=== PATIENT | male | born 1955 | race Caucasian/White ===

== ENCOUNTER → 2020-07-06 | Outpatient (CLI) | payer OTHER | LOC: LAB SHORT 08:36 → PLD 08:36 | DX: C43.59 Malignant melanoma of other part of trunk (principal) | CPT/HCPCS: 88305 ==

== ENCOUNTER → 2020-07-29 | Outpatient (CLI) | payer OTHER | END | disposition home or self-care (01) | LOC: LAB 15:09 → LAB SHORT 15:09 | DX: L82.1 Other seborrheic keratosis (principal) | CPT/HCPCS: 88305 ==

== ENCOUNTER → 2022-10-17 | Outpatient (CLI) | payer OTHER | END | disposition home or self-care (01) | LOC: LAB SHORT 05:00 → LAB 05:00 | PROVIDERS: Family Medicine | DX: R19.7 Diarrhea, unspecified (principal) | CPT/HCPCS: 87015; 87045; 87046; 87205; 87899 ==

== ENCOUNTER 2022-12-10 08:04 | Emergency (ER) | payer OTHER, MEDICARE ==
[~2022-12-10] VITALS: Ht 177.8 cm; Wt 61.2 kg
[2022-12-10] MEDS ORDERED: Fluoxetine HCl20 M1 PO (08:28)
[2022-12-10] MEDS ORDERED: ALBU90OI INH (08:29)
[2022-12-10 08:49] LABS: BASOPHILS ABSOLUTE AUTO 0.04 K/mm3 (0.00-0.23); BASOPHILS PERCENT AUTO 0 % (0-2); EOSINOPHILS ABSOLUTE AUTO 0.31 K/mm3 (0.00-0.68); EOSINOPHILS PERCENT AUTO 2 % (0-6); Hemoglobin 14.1 g/dL (13.5-17.5); IMMATURE GRAN ABSOLUTE AUTO 0.08 K/mm3 (0.00-0.10); IMMATURE GRAN PERCENT AUTO 1 % (0-1); LYMPHOCYTES ABSOLUTE AUTO 1.52 K/mm3 (0.84-5.20); LYMPHOCYTES PERCENT AUTO 11 % (21-46); MONOCYTES ABSOLUTE AUTO 1.04 K/mm3 (0.16-1.47); MONOCYTES PERCENT AUTO 7 % (4-13); Mean Corpuscular HGB 33.2 pg (26.0-34.0); Mean Corpuscular HGB Conc 34.4 g/dL (31.5-36.5); Mean Corpuscular Volume 97 fL (80-100); NEUTROPHILS ABSOLUTE AUTO 11.37 K/mm3 (1.96-9.15); NEUTROPHILS PERCENT AUTO 79 % (41-73); Platelet Count 393 K/mm3 (150-400); RDW Coefficient Variation 13.9 % (11.7-14.2); Red Blood Cell Count 4.25 M/mm3 (4.30-5.90); White Blood Cell Count 14.36 K/mm3 (4.00-11.30)
[2022-12-10 09:06] LABS: Albumin, Blood 3.6 g/dL (3.4-5.0); Albumin/Globulin Ratio 0.9 (0.8-1.8); Bilirubin, Total 0.8 mg/dL (0.1-1.0); Bun/Creatinine Ratio 16.3 (12.0-20.0); Calcium, Blood 9.1 mg/dL (8.5-10.1); Creatinine, Blood 1.04 mg/dL (0.60-1.20); Globulin, Blood 3.9 g/dL (2.2-4.0); Potassium, Blood 4.1 mmol/L (3.5-5.5); Total Protein, Blood 7.5 g/dL (6.4-8.2)
[2022-12-10 09:33] LABS: Source, Urine Clean Catch
[2022-12-10 09:40] LABS: Appearance, Urine Clear (Clear); Bilirubin, Urine Neg (Neg); Blood, Urine 1+ (Neg); Color, Urine Yellow (P-Yellow); Glucose Qualitative, Urine Neg (Neg); Ketones, Urine Neg (Neg); Leukocyte Esterase, Urine Neg (Neg); Nitrite, Urine Neg (Neg); Protein, Urine 1+ (Neg); Urobilinogen, Urine 1+ (Normal)
[2022-12-10 09:53] LABS: Hyaline Casts 0-2 /lpf (0-2); Mucus Heavy (0-Heavy)
[2022-12-10 09:54] LABS: Spermatozoa Rare /hpf
[2022-12-10 09:58] LABS: Bacteria Mod /hpf
[2022-12-10 09:59] LABS: Red Blood Cells, Urine 0-2 /hpf (0-2); Squamous Epithelial Cells Rare /hpf (Few); White Blood Cells, Urine 0-2 /hpf (0-5)
[2022-12-10 10:01] LABS: Transitional Epithelial Cells Rare /hpf (0-Rare)
[2022-12-10 10:30] VITALS: BP 148/76
[2022-12-10] MEDS ORDERED: HYDR1TAB94 PO (11:45)
[2022-12-10] MEDS ORDERED: AMOCLA875 PO (11:45)
== END 2022-12-10 12:11 | disposition home or self-care (01) ==
LOC: ER 08:04
PROVIDERS: Emergency Medicine
DX: K57.32 Diverticulitis of large intestine without perforation or abscess without bleeding (principal); Z79.899 Other long term (current) drug therapy
CPT/HCPCS: 74177; 76857; 80053; 81001; 83690; 85025; 87086; 99284-25; Q9967

== ENCOUNTER → 2023-04-12 | Outpatient (CLI) | payer OTHER ==
[~2023-04-12] MED LIST: ALBU90OI INH; AMOCLA875 PO; Fluoxetine HCl20 M1 PO; HYDR1TAB94 PO
== END ==
LOC: LAB SHORT 12:28 → LAB 12:28
DX: D22.39 Melanocytic nevi of other parts of face (principal)
CPT/HCPCS: 88305

== ENCOUNTER 2023-05-09 11:43 | Day surgery (SDC) | payer OTHER ==
[~2023-05-09] VITALS: Ht 177.8 cm; Wt 65.0 kg
[~2023-05-09 11:43] MED LIST changes: +FLUO10 PO; -Fluoxetine HCl20 M1 PO
[2023-05-09] MEDS ORDERED: MIRT15ST PO (12:36)
[2023-05-09] MEDS ORDERED: COMBIVENT RESPIM4 G1 (12:38)
[2023-05-09] MEDS ORDERED: SYMBICORT 80-10.2 GM (12:38)
--- NOTE | 2023-05-09 12:43 | NUR ---
05/09/23 1243 Naila Miller AT 1235 PLEDGET AT 1237
[2023-05-09 13:35] VITALS: BP 114/90
[2023-05-12] MEDS ORDERED: VOLTAREN ARTHRI20 GM TOP (13:56)
[2023-05-12] MEDS ORDERED: PRAV20 (13:56)
== END 2023-05-09 13:55 | disposition home or self-care (01) ==
LOC: ORSCSDS 11:43
PROVIDERS: Student in an Organized Health Care Education/Training Program
PROC: 08RJ3JZ Replacement of Right Lens with Synthetic Substitute, Percutaneous Approach (ICD-10-PCS; principal; 2023-05-09 13:00)
DX: H25.13 Age-related nuclear cataract, bilateral (principal); J44.9 Chronic obstructive pulmonary disease, unspecified; E78.5 Hyperlipidemia, unspecified; M19.90 Unspecified osteoarthritis, unspecified site; F17.210 Nicotine dependence, cigarettes, uncomplicated; Z79.899 Other long term (current) drug therapy
CPT/HCPCS: J2250; J3010; J7040; V2632

== ENCOUNTER 2023-05-23 10:17 | Day surgery (SDC) | payer OTHER ==
[~2023-05-23] VITALS: Ht 177.8 cm; Wt 64.1 kg
[~2023-05-23 10:17] MED LIST changes: +COMBIVENT RESPIM4 G1; +MIRT15ST PO; +PRAV20; +SYMBICORT 80-10.2 GM; +VOLTAREN ARTHRI20 GM TOP
[2023-05-23] MEDS ORDERED: HYDROCODONE-AC1 EA19 PO (10:55)
[2023-05-23] MEDS ORDERED: MIRT15 PO (10:56)
[2023-05-23] MEDS ORDERED: WIXELA 100-501 EAC1 IH (10:58)
--- NOTE | 2023-05-23 11:02 | NUR ---
05/23/23 1102 Naila Miller AT 1040 PLEDGET AT 1042
[2023-05-23 12:28] VITALS: BP 120/76
== END 2023-05-23 12:33 | disposition home or self-care (01) ==
LOC: ORSCSDS 10:17
PROVIDERS: Student in an Organized Health Care Education/Training Program
PROC: 08RK3JZ Replacement of Left Lens with Synthetic Substitute, Percutaneous Approach (ICD-10-PCS; principal; 2023-05-23 12:00)
DX: H25.12 Age-related nuclear cataract, left eye (principal); Z96.1 Presence of intraocular lens; E78.5 Hyperlipidemia, unspecified; J44.9 Chronic obstructive pulmonary disease, unspecified; F17.210 Nicotine dependence, cigarettes, uncomplicated; Z79.899 Other long term (current) drug therapy; Z85.820 Personal history of malignant melanoma of skin
CPT/HCPCS: J2250; J3010; J7040; V2632